=== PATIENT | male | born 2000 | race American Indian/Alaskan Native ===

== ENCOUNTER 2021-06-28 14:29 | Emergency (ER) | payer SELFPAY ==
--- NOTE | 2021-06-28 15:28 | Emergency Department Report ---
ED Psych HPI - General Chief Complaint: Psych Stated Complaint: ABNORMAL BEHAVIOR Time Seen by Provider: 06/28/21 15:08 Source: EMS Mode of arrival: Stretcher - History of Present Illness Initial Comments: 20-year-old male, no past medical or psychiatric history, presents to ED for evaluation. Patient states he was sent to the ED because he cut himself earlier today. Patient states he only attempted to cut himself because his girlfriend does it. Patient states he wanted to "try something new." Patient states he wanted to see if it would make him "feel how she feels." Patient states he has a court ordered industrial organization manager due to a previous drug charge. States he is supposed to visit her on a daily basis. When he did not show up today, he told his industrial organization manager why he did not come. States industrial organization manager sent EMS to his home. Patient reports he took 1 Tylenol pill. Patient denies any SI, HI, hallucinations, or current drug use. Patient reports he has never cut himself in the past. Complaint: other -: This afternoon Associated Psychiatric Symptoms: none History of same: No Associated Symptoms: denies other symptoms Treatments Prior to Arrival: none - Related Data Allergies Allergy/AdvReac Type Severity Reaction Status Date / Time No Known Allergies Allergy Unverified 06/28/21 14:47 ED Review of Systems ROS: Stated complaint: ABNORMAL BEHAVIOR Other details as noted in HPI Comment: All other systems reviewed and negative Psychiatric: denies: depression, auditory hallucinations, visual hallucinations, homicidal thoughts, suicidal thoughts ED Past Medical Hx - Past Medical History Hx Psychiatric Treatment: Yes - Surgical History Past Surgical History?: No ED Physical Exam - General Limitations: No Limitations General appearance: alert, in no apparent distress - Head Head exam: Present: atraumatic, normocephalic - Eye Eye exam: Present: normal appearance, EOMI - ENT ENT exam: Present: mucous membranes moist - Neck Neck exam: Present: normal inspection - Respiratory Respiratory exam: Present: normal lung sounds bilaterally. Absent: respiratory distress - Cardiovascular Cardiovascular Exam: Present: regular rate, normal rhythm - GI/Abdominal GI/Abdominal exam: Absent: distended - Extremities Exam Extremities exam: Present: other (Superficial abrasions to left forearm) - Neurological Exam Neurological exam: Present: alert, oriented X3 - Psychiatric Psychiatric exam: Present: normal affect, normal mood - Skin Skin exam: Present: warm, dry, intact, normal color ED Course Vital Signs 06/28/21 06/28/21 06/28/21 14:43 14:52 15:45 Temperature 98.6 F 98.9 F Pulse Rate 102 H 84 Respiratory 18 Rate Blood Pressure 136/70 144/86 [Left] O2 Sat by Pulse 100 100 100 Oximetry 06/28/21 06/29/21 06/29/21 20:05 02:18 09:23 Temperature 98.6 F 98.3 F 98.2 F Pulse Rate 91 H 66 90 Respiratory 18 16 18 Rate Blood Pressure 138/62 116/68 138/67 [Left] O2 Sat by Pulse 97 96 97 Oximetry - Reevaluation(s) Reevaluation #1: 06/29/21 11:34 Patient has been seen, evaluated, and cleared by psychiatry team. Outpatient follow-up resources have been provided. Patient will be discharged at this time. ED Medical Decision Making - Lab Data Result diagrams: 06/28/21 15:35 06/28/21 15:35 - Medical Decision Making 20-year-old male presents to ED for mental health evaluation. Patient is evidently different stories to different people. Myself, patient's mother, and mental health dye feeder all received different stories about why patient is actually here. Patient will be placed on a 1013 for possible suicidal ideations. Patient told me that he took 1 Tylenol pill and cut himself with a knife in order to try something new. Patient evidently told family that he overdosed on medications and cut himself after having argument with girlfriend. Patient told psych dye feeder that he took 1 pain pill. Mother told mental health dye feeder that patient has a history of attempted overdose in the past. Labs are unremarkable. Will dispo per psych. - Differential Diagnosis Mood disorder Critical care attestation.: If time is entered above; I have spent that time in minutes in the direct care of this critically ill patient, excluding procedure time. ED Disposition Clinical Impression: Deliberate self-cutting Disposition: 01 HOME / SELF CARE / HOMELESS Is pt being admited?: No Condition: Stable Instructions: Self-Destructive Behavior Additional Instructions: Professional and Agency Contacts To help Res[facility] Crises (30/03) [place] Crisis Line: Suicide Prevention Line: Crisis Text Line: Text START to 156305 Emergency: 911 Outpatient COMMUNITY Behavioral Health Resources: [facility]: [facility] [address] [place], [place] [address] [place]: [facility] [address] [place] [address] Thursday thru Thursday - 8am - 5pm Call to schedule an assessment for mental health and substance abuse programs [place]: [facility] Address: [address] [place] [address] Thursday thru Thursday- 7am-2pm [facility] Address: [address] [place] [address] Thursday thru Thursday: 8:30AM-5PM Referrals: PRIMARY CARE, [Primary Care Provider] - 3-5 Days Time of Disposition: 11:35
[2021-06-28 15:50] LABS: Basophils # (Auto) 0.1 K/mm3 (0.0-0.1); Basophils % (Auto) 1.2 % (0.0-1.8); Eosinophils # (Auto) 0.1 K/mm3 (0.0-0.4); Eosinophils % (Auto) 1.2 % (0.0-4.3); Hematocrit 43.4 % (35.5-45.6); Hemoglobin 14.8 gm/dl (11.8-15.2); Lymphocytes # (Auto) 2.2 K/mm3 (1.2-5.4); Lymphocytes % (Auto) 31.9 % (13.4-35.0); Mean Corpuscular HGB Conc 34 % (32-34); Mean Corpuscular Volume 88 fl (84-94); Monocytes # (Auto) 0.4 K/mm3 (0.0-0.8); Monocytes % (Auto) 5.5 % (0.0-7.3); Platelet Count 242 K/mm3 (140-440); Red Blood Count 4.91 M/mm3 (3.65-5.03); Red Cell Distribution Width 13.8 % (13.2-15.2)
[2021-06-28 15:56] LABS: Bacteria,Urine 1+ /HPF (Negative); Bilirubin,Urine NEG (Negative); Blood,Urine NEG (Negative); Color,Urine Straw (Yellow); Protein,Urine <15 mg/dL mg/dL (Negative); Urobilinogen,Urine < 2.0 mg/dL (<2.0)
[2021-06-28 16:04] LABS: Amphetamine Screen,Urine Negative; Benzodiazepines Screen,Urine Negative; Cannabinoid Screen,Urine Negative; Cocaine Screen,Urine Negative; Methadone Screen,Urine Negative
[2021-06-28 16:10] LABS: BUN/Creatinine Ratio 6; Blood Urea Nitrogen 9 mg/dL (9-20); Calcium 9.7 mg/dL (8.4-10.2); Hemolysis Index 8
[2021-06-28 16:16] LABS: Opiate Screen,Urine Positive
[2021-06-28 16:38] LABS: WBC,Urine < 1.0 /HPF (0.0-6.0)
--- NOTE | 2021-06-29 09:13 | Consultation ---
History of Present Illness - Reason for Consult Consult date: 06/29/21 Reason for consult: cutting - History of Present Psychiatric Illness Per ER Note: 20-year-old male, no past medical or psychiatric history, presents to ED for evaluation. Patient states he was sent to the ED because he cut himself earlier today. Patient states he only attempted to cut himself because his girlfriend does it. Patient states he wanted to "try something new." Patient states he wanted to see if it would make him "feel how she feels." Patient states he has a court ordered door closer due to a previous drug charge. States he is supposed to visit her on a daily basis. When he did not show up today, he told his door closer why he did not come. States door closer sent EMS to his home. Patient reports he took 1 Tylenol pill. Patient denies any SI, HI, hallucinations, or current drug use. Patient reports he has never cut himself in the past. Felix Anne is a 20y/o male patient who presented to the ER because he says "I cut myself to show my girl how she makes me feel when she does that. I wanted her to feel what I feel every time she cuts herself." He shows me three superficial cuts on his left forearm. The patient is calm, cooperative and polite. His affect is euthymic. He says "we broke up yesterday and I won't do this again." He says his girlfriend needs help but he can't make her get it. He says "I can't force her to go." He denies SI/HI. The patient says "no, not at all. 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 The patient denies hallucinations of any kind. He also denies any current use of illicit drugs, alcohol or nicotine. PAST PSYCHIATRIC HISTORY: Diagnoses: Denies Suicide attempts or Self-harm behavior: Denies Prior psychiatric hospitalizations: Denies Substance Abuse history: Denies Previous psychiatric medications tried: Denies Outpatient treatment: Denies PAST MEDICAL HISTORY: None reported or document Family Psychiatric History: None reported or documented SOCIAL HISTORY Marital Status: Single Living Arrangements: with mom Employment Status: Employed Access to guns/weapons: Denies Education: in school for GED History of Abuse: Denies Legal History: Denies REVIEW OF SYSTEMS Constitutional: Negative for weight loss ENT: Negative for stridor Respiratory: Negative for cough or hemoptysis All other systems reviewed and are negative MENTAL STATUS EXAMINATION General Appearance and Behavior: Age appropriate, good hygiene, wearing appropriate clothes. Cooperation: cooperative Psychomotor Behavior: Psychomotor normal Mood: "good" Affect and affective range: congruent with stated mood, Euthymic Thought Process: goal directed Thought Content: None Speech: Normal volume, Regular rate and rhythm, Suicidal Ideation: Denies Homicidal Ideation: Denies Hallucinations: Denies Delusions: None elicited Impulse Control: Limited Insight and Judgment: Limited Memory: limited Attention: attentive Orientation: alert and oriented Assessment and Plan (1) Mental Health Evaluation for cutting Treatment Plan d/c 1013 No meds prescribed at this time Sitter: Per primary Medical: per primary Disposition: Do not recommend acute psychiatric inpatient treatment. The patient understands that if SI/HI or fear of endangerment are to arise he is to seek immediate attention. The complaint inspector to further discuss safety plan and give the patient all necessary resources. Will sign off. Thanks. Case staffed with Dr. Stewart Medications and Allergies Allergies Allergy/AdvReac Type Severity Reaction Status Date / Time No Known Allergies Allergy Unverified 06/28/21 14:47 Mental Status Exam - Vital signs Last Vital Signs Temp 98.3 F 06/29/21 02:18 Pulse 66 06/29/21 02:18 Resp 16 06/29/21 02:18 BP 116/68 06/29/21 02:18 Pulse Ox 96 06/29/21 02:18 Results Result Diagrams: 06/28/21 15:35 06/28/21 15:35 Abnormal lab results 06/28/21 06/28/21 06/28/21 Range/Units 15:35 15:35 15:35 Creatinine 1.4 H (0.8-1.3) mg/dL Salicylates < 0.3 L (2.8-20.0) mg/dL Acetaminophen 5.0 L (10.0-30.0) ug/mL 06/28/21 Range/Units 20:12 Creatinine (0.8-1.3) mg/dL Salicylates (2.8-20.0) mg/dL Acetaminophen 5.0 L (10.0-30.0) ug/mL All other labs normal.
[2021-06-29 09:24] VITALS: BP 138/67
== END 2021-06-29 12:00 | disposition home or self-care (01) ==
LOC: EDSEX → ED 14:29
DX: T14.91XA Suicide attempt, initial encounter (principal); Z13.30 Encounter for screening examination for mental health and behavioral disorders, unspecified; Z91.51 Personal history of suicidal behavior; X83.8XXA Intentional self-harm by other specified means, initial encounter; Z20.822 Contact with and (suspected) exposure to COVID-19; Y93.89 Activity, other specified; Y92.89 Other specified places as the place of occurrence of the external cause; Y99.8 Other external cause status
CPT/HCPCS: 36415; 80048; 80307; 81001; 85025; 99284; U0003; 80320; G0480